=== PATIENT | male | born 1990 | race Caucasian/White ===

== ENCOUNTER → 2021-04-21 14:38 | Outpatient (BNVA) | payer OTHER, SELFPAY | PROVIDERS: Visit Provider Nurse Practitioner Family | DX: R05.9 Cough, unspecified (principal) | CPT/HCPCS: 87633; 87635 ==

== ENCOUNTER → 2021-04-22 00:01 | Outpatient (BNVA) | payer OTHER, SELFPAY | PROVIDERS: Visit Provider Nurse Practitioner Family | DX: R05.9 Cough, unspecified (principal); Z20.822 Contact with and (suspected) exposure to COVID-19 | CPT/HCPCS: 87486; 87581; 87633 ==

== ENCOUNTER → 2023-06-27 10:32 | Outpatient (BNVA) | payer OTHER, SELFPAY | PROVIDERS: PCP Nurse Practitioner Family; Visit Provider Psychiatry & Neurology Psychiatry | DX: F33.1 Major depressive disorder, recurrent, moderate (principal); F41.1 Generalized anxiety disorder | CPT/HCPCS: 80053; 84443; 85025 ==

== ENCOUNTER → 2023-07-06 11:00 | Outpatient (BNVA) | payer OTHER, SELFPAY | PROVIDERS: PCP Nurse Practitioner Family; Visit Provider Psychiatry & Neurology Psychiatry | DX: F33.1 Major depressive disorder, recurrent, moderate (principal); R79.89 Other specified abnormal findings of blood chemistry | CPT/HCPCS: 84439; 84443 ==

== ENCOUNTER → 2024-10-11 11:11 | Outpatient (BNVA) | payer BC, MEDICAID, SELFPAY | PROVIDERS: PCP Registered Nurse; Visit Provider Registered Nurse | DX: Z13.6 Encounter for screening for cardiovascular disorders (principal); Z13.1 Encounter for screening for diabetes mellitus | CPT/HCPCS: 80053; 80061; 83036; 85025 ==

== ENCOUNTER 2024-11-26 08:50 | Day surgery (SDC) | payer BC, MEDICAID, SELFPAY ==
[2024-11-26 09:14] VITALS: BP 110/66; PULSE 63; RESP 18; TEMP 36.1; O2SAT 95; BMI 21.4
--- NOTE | 2024-11-26 09:41 | P.ANESASSM_ITS ---
Pre-Anesthetic Assessment Height/Weight: Height 1.68 m Weight 60.328 kg Temp Pulse Resp BP Pulse Ox O2 Del Method 97.0 F L 63 18 110/66 95 Room Air 11/26/24 09:14 11/26/24 09:14 11/26/24 09:14 11/26/24 09:14 11/26/24 09:14 11/26/24 09:14 Preop Diagnosis: change in bowel pattern Operation Date: 11/26/24 10:15 Proposed Procedures p EGD with Biopsy [id number] G0105, R19.4 R12(Not Applicable) - Hammad Stone MD s Colonoscopy(Not Applicable) - Hammad Stone MD Familial anesthetic complications: none Was Beta Tammi taken within 24 hours: N/A Was Clonidine taken within 24 hours: N/A Last intake: Intake Last Liquid Date 11/26/24 Last Liquid Time 0730 sip of water Last Solid Date 11/24/24 Last Solid Time 17:00 Social Tobacco (vapes thc and nicotine salts both vaped today @ 0700) Exam alert, oriented x 3, clear to auscultation bilaterally and regular rate & rhythm Airway Submandibular: within normal limits Cervical ROM: within normal limits Mallampati: Class I Dentition: false Pulmonary None reported CV/HEM None reported None reported Hepatic None reported GI Gastroesophageal Reflux Disease change in bowel pattern Metabolic None reported Musc/skel None reported Neuropsych Anxiety and Depression Anesthetic Plan ASA status: 2 Anesthesia: MAC Medications/Allergies Home Medications ?Medication ?Instructions ?Recorded ?Confirmed ?Last Taken ?Type hydroxyzine HCl 50 mg tablet 50 mg PO QID PRN anxiety #120 tabs 08/29/24 11/20/24 11/20/24 Rx trazodone 50 mg tablet 100 mg (2 x 50 mg) PO .HS FL N 08/29/24 11/20/24 11/19/24 Rx insomnia #60 tabs chlorhexidine gluconate 0.12 % 15 ml buccal BID PRN gi ngivitis 30 10/01/24 11/20/24 11/20/24 Rx mouthwash days #1,893 mL venlafaxine 150 mg 300 mg (2 x 150 mg) PO DAILY #180 11/07/24 11/20/24 11/20/24 Rx capsule,extended release 24 hr caps ondansetron 8 mg disintegrating 8 mg PO Q8H PRN nausea and 11/25/24 11/25/24 Unknown Rx tablet vomiting #3 tabs Allergies Allergy/AdvReac Type Severity Reaction Status Date / Time NSAIDS (Non-Steroidal Allergy ADR-Agitate Verified 11/20/24 09:31 Anti-Inflamma d Opioids - Morphine Analogues Allergy ADR-Agitate Verified 11/20/24 09:31 d sertraline (From Zoloft) Allergy ADR-Anxiety Verified 11/20/24 09:31 Current Medications Generic Name Dose Route Start Last Admin Trade Name Freq PRN Reason Stop Dose Admin Sodium Chloride 1,000 mls @ 15 mls/hr 11/26/24 08:55 11/26/24 09:18 Sodium Chloride 0.9% IV 11/27/24 08:54 15 mls/hr .Q24H PRN Administration COLONOSCOPY FLUIDS PFSH Anesthesia Medical History ADHD Psychiatric care Surgical History No pertinent past surgical history Family History Grandmother Cancer paternal skin and pancreas Parkinson disease maternal Father Lung disease Denies family history of Diabetes Chronic kidney disease (CKD) Hypertension Stroke Social History Smoking and tobacco/nicotine status: current every day tobacco/nicotine user (vape) Alcohol intake: never Substance/Drug Use: never Adopted: No Caregiver/support person: No Lives independently: No Household members: spouse Marital status: service: No Current occupational status: employed Sexually active: Yes Do you think of yourself as: Straight/Heterosexual Current gender identity: Male
--- NOTE | 2024-11-26 09:47 | W.PM.OPSFHP ---
Same Day Surgery H&P Indication for Procedure/HPI DATE OF PROCEDURE: November 26, 2024 CHIEF COMPLAINT/INDICATIONFOR SURGICAL PROCEDURE: hearburn, changes in bowel habits PREOP DIAGNOSIS: change in bowel pattern, heartburn PLANNED PROCEDURE: Operation Date: 11/26/24 10:15 Proposed Procedures p EGD with Biopsy [id number] G0105, R19.4 R12(Not Applicable) - Hammad Stone MD s Colonoscopy(Not Applicable) - Hammad Stone MD Medications/Allergies* Allergies/Adverse Reactions Allergy/AdvReac Type Severity Reaction Status Date / Time NSAIDS (Non-Steroidal Allergy ADR-Agitate Verified 11/20/24 09:31 Anti-Inflamma d Opioids - Morphine Analogues Allergy ADR-Agitate Verified 11/20/24 09:31 d sertraline (From Zoloft) Allergy ADR-Anxiety Verified 11/20/24 09:31 Current Medications: Generic Name Dose Route Start Last Admin Trade Name Freq PRN Reason Stop Dose Admin Sodium Chloride 1,000 mls @ 15 mls/hr 11/26/24 08:55 11/26/24 09:18 Sodium Chloride 0.9% IV 11/27/24 08:54 15 mls/hr .Q24H PRN Administration COLONOSCOPY FLUIDS Pertinent History/Comorbid Conditions* Medical History (Updated 10/17/24 @ 08:34 by Hammad Stone MD) ADHD Psychiatric care Surgical History (Updated 10/25/23 @ 08:33 by SHAI Garland) No pertinent past surgical history Family History (Updated 12/27/22 @ 14:21 by Latanya Barfield LPN) Lung disease Father Cancer Grandmother paternal skin and pancreas Parkinson disease Grandmother maternal Denies family history of Diabetes Chronic kidney disease (CKD) Hypertension Stroke Social History Smoking and tobacco/nicotine status: current every day tobacco/nicotine user (vape) Alcohol intake: never Substance/Drug Use: never Adopted: No Caregiver/support person: No Lives independently: No Household members: spouse Marital status: service: No Current occupational status: employed Sexually active: Yes Do you think of yourself as: Straight/Heterosexual Current gender identity: Male Pertinent Exam Findings alert, oriented x 3, clear to auscultation bilaterally, regular rate & rhythm and procedure specific exam findings abdomen soft, nt, nd Recommendations Risks and benefits of procedure reviewed and Patient/family agree to proceed Surgery/Procedure today Coding Level of Care Code Acute Code for Chg Fwd
--- NOTE | 2024-11-26 10:17 | PC.NURSE ---
Cecum time 1016
[2024-11-26 10:28] VITALS: BP 94/60; PULSE 65; RESP 14; TEMP 36.3; O2SAT 98
[2024-11-26 10:40] VITALS: BP 98/75; PULSE 65; O2SAT 98
[2024-11-26 10:55] VITALS: BP 103/75; PULSE 57; RESP 16; O2SAT 98
--- NOTE | 2024-11-26 11:10 | ANE.PACU2 ---
Inpatient post-anesthesia follow up: Airway intact: Yes Vital signs: Temperature 97.3 F Pulse Rate 57 Respiratory Rate 16 Blood Pressure 103/75 Pulse Oximetry 98 Oxygen Delivery Me thod Room Air Oxygen Flow Rate 2 Fraction of Inspir ed Oxygen Hydration adequate: Yes Nausea and vomiting: No Pain level: 1 Mental status: Baseline
== END 2024-11-26 11:10 | disposition home or self-care (01) ==
PROVIDERS: PCP Registered Nurse; Visit Provider Student in an Organized Health Care Education/Training Program
PROC: 0DJ08ZZ Inspection of Upper Intestinal Tract, Via Natural or Artificial Opening Endoscopic (ICD-10-PCS; principal; 2024-11-26 10:15)
PROC: 0DJD8ZZ Inspection of Lower Intestinal Tract, Via Natural or Artificial Opening Endoscopic (ICD-10-PCS; CPT 45378; 2024-11-26 10:15)
DX: R19.4 Change in bowel habit (principal); K64.4 Residual hemorrhoidal skin tags; R12 Heartburn; K29.50 Unspecified chronic gastritis without bleeding; F17.290 Nicotine dependence, other tobacco product, uncomplicated; K21.9 Gastro-esophageal reflux disease without esophagitis; F41.8 Other specified anxiety disorders
CPT/HCPCS: 43239; 45378; 88305; 88342; J2250; J2704; J3490; J7030

== ENCOUNTER 2024-12-17 09:00 | Outpatient (CLI) | payer BC, MEDICAID, SELFPAY | END 2024-12-17 09:01 | disposition home or self-care (01) | LOC: SLEEP 16:58 | PROVIDERS: PCP Registered Nurse; Referring Provider Registered Nurse; Visit Provider Registered Nurse | DX: G47.30 Sleep apnea, unspecified (principal) | CPT/HCPCS: G0399 ==